=== PATIENT | female | born 1940 | race Caucasian/White ===

== ENCOUNTER 2017-07-08 11:11 | Emergency (ER) | payer MEDICARE ==
[~2017-07-08] VITALS: Ht 167.6 cm; Wt 111.1 kg
--- OUTSIDE RECORDS SUMMARY | 2017-07-08 11:13 | XMS REPORT | Clinical Summary ---
Author Author [facility] Address Unknown Phone Unavailable Care Team Providers Care Button Puncher Name Role Phone PCP Unavailable Allergies Not on File Current Medications Not on file Active Problems Not on file Social History Tobacco Use Types Packs/Day Years Used Date Never Assessed Sex Assigned at Date Recorded Not on file Last Filed Vital Signs Not on file Plan of Treatment Not on file Results Not on fileafter 07/07/2016
== END 2017-07-08 12:00 | disposition home or self-care (01) ==
LOC: FSED 11:11
DX: R50.9 Fever, unspecified (principal); R05 Cough; J20.9 Acute bronchitis, unspecified; I10 Essential (primary) hypertension; E78.5 Hyperlipidemia, unspecified
CPT/HCPCS: 81003; 99283

== ENCOUNTER 2019-05-02 14:50 | Outpatient (RCR) | payer MEDICARE | END 2019-05-04 | LOC: PT 14:50 | PROVIDERS: ATTEND Family Medicine | DX: M54.32 Sciatica, left side (principal); M54.5 Low back pain; M25.552 Pain in left hip; R26.2 Difficulty in walking, not elsewhere classified; D63.8 Anemia in other chronic diseases classified elsewhere; E78.2 Mixed hyperlipidemia ==

== ENCOUNTER 2019-05-14 14:56 | Outpatient (RCR) | payer MEDICARE | END 2019-06-04 | LOC: PT 14:56 | PROVIDERS: ATTEND Family Medicine | DX: M54.32 Sciatica, left side (principal) | CPT/HCPCS: 97139 ==

== ENCOUNTER → 2020-11-03 | Outpatient (RCR) | payer MEDICARE | LOC: PT 10-05 09:55 | PROVIDERS: ATTEND Family Medicine | DX: M54.5 Low back pain (principal); M62.81 Muscle weakness (generalized); R26.2 Difficulty in walking, not elsewhere classified; M53.86 Other specified dorsopathies, lumbar region ==

== ENCOUNTER 2020-12-02 15:59 | Outpatient (RCR) | payer MEDICARE | END 2020-12-03 | LOC: PT 15:59 | PROVIDERS: ATTEND Family Medicine | DX: M54.16 Radiculopathy, lumbar region (principal); M53.86 Other specified dorsopathies, lumbar region; M62.81 Muscle weakness (generalized); R26.2 Difficulty in walking, not elsewhere classified ==

== ENCOUNTER 2021-01-01 13:00 | Outpatient (RCR) | payer MEDICARE | END 2021-01-03 | LOC: PT 13:00 | PROVIDERS: ATTEND Family Medicine | DX: M54.50 Low back pain, unspecified (principal); M53.86 Other specified dorsopathies, lumbar region; M62.81 Muscle weakness (generalized); R26.2 Difficulty in walking, not elsewhere classified | CPT/HCPCS: 97139 ==

== ENCOUNTER → 2021-02-02 | Outpatient (RCR) | payer MEDICARE | LOC: PT 01-05 13:26 | PROVIDERS: ATTEND Family Medicine | DX: M54.50 Low back pain, unspecified (principal); M53.86 Other specified dorsopathies, lumbar region; M62.81 Muscle weakness (generalized); R26.2 Difficulty in walking, not elsewhere classified; M25.60 Stiffness of unspecified joint, not elsewhere classified | CPT/HCPCS: 97139 ==

== ENCOUNTER 2021-02-19 13:00 | Outpatient (RCR) | payer MEDICARE | END 2021-03-05 | LOC: PT 13:00 | PROVIDERS: ATTEND Family Medicine | DX: M54.50 Low back pain, unspecified (principal) ==

== ENCOUNTER → 2022-04-05 | Outpatient (RCR) | payer MEDICARE | LOC: PT 09:12 | PROVIDERS: ATTEND Nurse Practitioner Family | DX: M54.31 Sciatica, right side (principal); R26.81 Unsteadiness on feet ==

== ENCOUNTER 2022-04-21 12:58 | Outpatient (RCR) | payer MEDICARE | END 2022-05-03 | LOC: PT 12:58 | PROVIDERS: ATTEND Nurse Practitioner Family | DX: M54.31 Sciatica, right side (principal); R26.89 Other abnormalities of gait and mobility ==

== ENCOUNTER 2022-06-02 13:00 | Outpatient (RCR) | payer MEDICARE | END 2022-06-03 | LOC: PT 13:00 | PROVIDERS: ATTEND Nurse Practitioner Family | DX: M54.31 Sciatica, right side (principal); R26.89 Other abnormalities of gait and mobility ==

== ENCOUNTER 2022-06-30 13:00 | Outpatient (RCR) | payer MEDICARE | END 2022-07-03 | LOC: PT 13:00 | PROVIDERS: ATTEND Nurse Practitioner Family | DX: M54.31 Sciatica, right side (principal); R26.89 Other abnormalities of gait and mobility ==

== ENCOUNTER 2022-07-11 12:52 | Outpatient (RCR) | payer MEDICARE | END 2022-08-03 | LOC: PT 12:52 | PROVIDERS: ATTEND Nurse Practitioner Family | DX: M54.31 Sciatica, right side (principal); G89.29 Other chronic pain; R26.89 Other abnormalities of gait and mobility ==